=== PATIENT | female | born 1970 | race Caucasian/White ===

== ENCOUNTER 2016-05-23 00:46 | Emergency (ER) | payer OTHER ==
[~2016-05-23] VITALS: Ht 154.9 cm; Wt 90.7 kg
[~2016-05-23 00:46] MED LIST: AUGMENTIN 500-1 EACH PO; BENTYL 20 MG TA20 M1 PO; CIPRO500 MG PO; MACRODANTIN25 MG PO; NORCO 5-325 TA1 EACH PO; ONDANSETRON HCL4 M2 PO; PRILOSEC 20 MG20 MG PO; PROZAC20 MG PO; WELLBUTRIN 75 M75 M1 PO
[2016-05-23 04:44] VITALS: BP 123/51
== END 2016-05-23 04:44 | disposition home or self-care (01) ==
LOC: ER 00:46
DX: K56.41 Fecal impaction (principal); F32.9 Major depressive disorder, single episode, unspecified; Z88.2 Allergy status to sulfonamides; Z88.1 Allergy status to other antibiotic agents; Z87.891 Personal history of nicotine dependence

== ENCOUNTER 2020-01-30 15:15 | Emergency (ER) | payer BC ==
[~2020-01-30] VITALS: Ht 154.9 cm; Wt 86.2 kg
[2020-01-30 15:26] VITALS: BP 105/58
== END 2020-01-30 16:10 | disposition home or self-care (01) ==
LOC: ER 15:15
DX: S61.412A Laceration without foreign body of left hand, initial encounter (principal); Z79.899 Other long term (current) drug therapy; Z88.2 Allergy status to sulfonamides; Z88.8 Allergy status to other drugs, medicaments and biological substances; Z87.891 Personal history of nicotine dependence; W26.8XXA Contact with other sharp object(s), not elsewhere classified, initial encounter; Y93.89 Activity, other specified; Y92.89 Other specified places as the place of occurrence of the external cause; Y99.8 Other external cause status